=== PATIENT | male | born 1995 | race African-American/Black ===

== ENCOUNTER 2017-12-12 01:05 | Emergency (ER) | payer SELFPAY ==
[~2017-12-12] VITALS: Ht 177.8 cm; Wt 77.0 kg
[2017-12-12 01:09] VITALS: BP 127/71
[2017-12-12] MEDS ORDERED: LIDOCAINE 1%-EPI 1:100K, 20ML ONE (01:28)
[2017-12-12] MEDS ORDERED: LIDOCAINE 1%-EPI 1:100K, 50ML INFIL ONE (01:30)
[2017-12-12] MEDS ORDERED: BACITRACIN ZINC OINT 500U/GM, 0.9 GM ONE (02:17)
== END 2017-12-12 02:22 | disposition home or self-care (01) ==
LOC: ED 01:57
DX: S61.511A Laceration without foreign body of right wrist, initial encounter (principal); W26.0XXA Contact with knife, initial encounter; Y93.89 Activity, other specified; Y99.8 Other external cause status; Y92.009 Unspecified place in unspecified non-institutional (private) residence as the place of occurrence of the external cause
CPT/HCPCS: 12032